=== PATIENT | male | born 1975 | race Caucasian/White ===

== ENCOUNTER → 2016-09-26 | Outpatient (CLI) | payer OTHER ==
[~2016-09-26] MED LIST: DILANTIN PO; GABAPENTIN PO; IBUPROFEN800 MG PO; MOTRIN600 M1 PO; NORCO1 TAB 10/3 PO
--- NOTE | ~2016-09-26 | EE ---
Unit #: [id number] #: [id number] Patient: ILIR PERES [id number] [address] [address] [id number] O MR#: [id number] NAME: ILIR PERES : 1975 SEX: M STUDY DATE/TIME: 09/26/2016 UNIT: [facility] ROOM: STUDY DESCRIPTION: EEG Attending Physician: Leidy Langston Aprn Referring Physician: Leidy Langston Aprn Primary Care Physician: Darrel Verdin M.D. NEURODIAGNOSTICS REPORT EXAM EEG REASON FOR STUDY Seizures. TECH [employer] TECHNICAL INFORMATION This is a routine EEG performed using the standard International 10-20 System of electrode placement. Photic stimulation was performed. Hyperventilation was also performed. REPORT Throughout the entire study, the best background rhythm seen is approximately 11 Hz. This rhythm is seen in both posterior head regions symmetrically and does attenuate to eye opening and closure. Hyperventilation was performed which did not elicit any abnormal buildup. Photic stimulation was performed which did not elicit any epileptiform abnormalities. However, a good photic driving response is seen. There was no sleep recorded during the study. Throughout the entire study there were no electrographic seizures recorded nor were there any epileptiform abnormalities seen. INTERPRETATION This is a normal awake EEG. A normal EEG does not rule out the possibility of a seizure disorder. Clinical correlation is advised. Dictated by... Shawn Sheffield II., M.D. GWS/nannette TD: 10/01/2016 13:20 JOB #: [id number] Unit #: [id number] #: [id number] Patient: ILIR PERES NEURODIAGNOSTICS REPORT Page 1 of 1 X NEURODIAGNOSTICS REPORT
--- NOTE | ~2016-09-26 | MR17 ---
[facility] A Service of [facility] RADIOLOGY TEXT RESULTS PATIENT: ILIR PERES LOCATION: [facility] : 77 UNIT #: [id number] AGE: [address]: LEIDY LANGSTON APRN SEX: M ORDER DR: [id number] [facility] [address] [place], [place] [address] [id number] O MR#: [id number] Acc #: [id number] NAME: ILIR PERES : 1975 SEX: M STUDY DATE/TIME: 09/26/2016 9:54 UNIT: [facility] ROOM: STUDY DESCRIPTION: MR Brain WWo Contrast Attending Physician: Leidy Langston Aprn Referring Physician: Leidy Langston Aprn Ordering Physician: Leidy Langston Aprn Primary Care Physician: Darrel Verdin M.D. MRI CENTER REPORT This report is preliminary unless electronic signature is present. EXAM MRI brain with and without HISTORY Seizure disorder, chronic seizures since childhood, on seizure medications to keep them under control, grand mal type, has a history of stroke in 2012. Right side is weak but functional. Multiple TIAs per patient. History of López palsy. TECHNIQUE MRI of the brain performed prior to and following intravenous injection of 17 mL of MultiHance. 1.5-T imaging technique and a seizure protocol utilized. COMPARISON STUDIES There is comparison from 10/01/2015. FINDINGS There is no evidence for a recent ischemic insult on the diffusion series. 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 This is unchanged. The ventricles are normal in size and configuration. Otherwise the quick-white junction is well-maintained. There is some right-sided Wallerian degeneration and volume loss involving the right side cerebral peduncle consistent with the old insult. Small amount of old blood product and mineral deposition in the right frontal cortex is also consistent with laminar cortical necrosis. There is nothing to suggest mesial temporal sclerosis. Following contrast administration, there is no pathologic intracranial enhancement. Nothing to suggest quick matter heterotopia. No Chiari-I malformation. No extraaxial fluid collection. The major intracranial STS. [facility] A Service of [facility] RADIOLOGY TEXT RESULTS PATIENT: ILIR PERES LOCATION: [facility] : 77 UNIT #: [id number] AGE: [address]: LEIDY LANGSTON APRN SEX: M ORDER DR: flow voids are maintained. There is a small amount of fluid or inflammatory change in the mastoid air cells, right greater than left. Focal mucosal disease right maxillary sinus. Mucosal disease in the sphenoid sinuses with air-fluid level on the left consistent with a component of acute sinusitis. Fluid or inflammatory change, [id number]-left side mastoid air cells, better seen on prior. IMPRESSION 1. On comparison to the study from 10/01/2015, there is a stable area of encephalomalacia in the right lateral frontal lobe consistent with an old right MCA territory infarct. No recent ischemic insult is suspected. 2. Paranasal sinus disease with an air-fluid level in the left sphenoid sinus concerning for a component of acute sinusitis. Otherwise, there is improvement in the mastoid air cell fluid which was noted previously. 3. No evidence for a recent ischemic insult. No pathologic intracranial enhancement or intracranial mass effect. Dictated by... Radha Zhong M.D. THIS IS AN ELECTRONICALLY VERIFIED REPORT Radha Zhong M.D. at 09/27/2016 5:33 PM ZACH/yahir TD: 09/26/2016 20:07 JOB #: [id number] MRI CENTER REPORT Page 1 of 1 COPY
== END | disposition home or self-care (01) ==
LOC: CMRI 09:21
DX: G40.909 Epilepsy, unspecified, not intractable, without status epilepticus (principal); I63.9 Cerebral infarction, unspecified; G93.89 Other specified disorders of brain; J34.89 Other specified disorders of nose and nasal sinuses
CPT/HCPCS: 70553; 95816; A9577

== ENCOUNTER → 2016-10-28 | Outpatient (CLI) | payer OTHER ==
[2016-10-28 16:48] LABS: INR 0.9; PROTHROMBIN TIME (PATIENT) 9.7 SECONDS (9.6-11.5)
[2016-10-30 22:20] LABS: PROTEIN C ACTIVITY 130 % (70-180); PROTEIN S 91 % (70-150)
[2016-10-31 07:02] LABS: CARDIOLIPIN IGG (LUPUS) <14 GPL (<=14); CARDIOLIPIN IGM (LUPUS) <12 MPL (<=12); DRVVT 1:1: MIX CORRECTED (CORRECTED); DRVVT CONFIRM Positive (Negative); PROTROMBIN TIME LUPUS 10.5 sec (9.0-11.5); PT (LA MIX STUDY) 10.5 sec (<=11.5); PTT-LA 33 sec (<=40); PTT-LA SCREEN (LUPUS) 33 sec (<=40); THROMBIN TIME LUPUS 17 sec (13-19); dRVVT SCREEN (LUPUS) 50 sec (<=45)
== END | disposition home or self-care (01) ==
LOC: CLAB 15:41
PROVIDERS: Nurse Practitioner Family
DX: I63.9 Cerebral infarction, unspecified (principal)
CPT/HCPCS: 36415; 81240; 81241; 82607; 83090; 85301; 85303; 85306; 85307; 85597; 85610; 85613; 85670; 85730; 86147